=== PATIENT | female | born 1955 | race Hispanic/Latino ===

== ENCOUNTER 2017-11-18 23:13 | Emergency (ER) | payer MEDICARE ==
[~2017-11-18 23:13] MED LIST: ATOR40TA71 PO; INSU3INS3 SQ; PRED20TA3 PO; QUET200T PO; VERA200C2 PO; VERA40TA5 PO; [UNRECOGNIZED DRUG - OTHER] MC; [UNRECOGNIZED DRUG - OTHER] SD
[2017-11-19] MEDS ORDERED: TETRACAINE HCL 0.5% 4 ML OPHTH SOLN ONE (01:02)
[2017-11-19] MEDS ORDERED: FLUORESCEIN SODIUM 0.6 MG STRIP ONE (01:02)
== END 2017-11-19 01:50 | disposition home or self-care (01) ==
LOC: EDH 23:13
DX: H10.9 Unspecified conjunctivitis (principal); Z86.73 Personal history of transient ischemic attack (TIA), and cerebral infarction without residual deficits; Z91.041 Radiographic dye allergy status

== ENCOUNTER 2018-04-28 04:34 | Emergency (ER) | payer MEDICARE ==
[2018-04-28 05:21] LABS: BASOPHILS % (AUTO) 0.3 % (0.0-5.0); EOSINOPHILS % (AUTO) 0.2 % (0.0-8.0); HEMATOCRIT 40.8 % (36-48); LYMPHOCYTES % (AUTO) 5.9 % (21.0-51.0); MEAN CORPUSCULAR HEMOGLOBIN 30.5 pg (27.0-33.0); MEAN CORPUSCULAR HGB CONC 34.4 g/dL (32.0-36.0); MEAN CORPUSCULAR VOLUME 88.9 fL (79-99); MONOCYTES % (AUTO) 3.9 % (3.0-13.0); NEUTROPHILS % (AUTO) 89.7 % (40.0-77.0); NUCLEATED RED BLOOD CELLS 0.1 % (0.0-0.19); PLATELET COUNT (AUTO) 338 K/uL (130-400); RED BLOOD CELL COUNT(AUTO) 4.59 MIL/uL (4.00-5.50); RED CELL DISTRIBUTION WIDTH 14.6 % (11.0-15.5); WHITE BLOOD COUNT (AUTO) 14.7 K/uL (4.8-10.8)
[2018-04-28 05:27] LABS: CREATININE 0.9 mg/dL (0.5-1.5); POTASSIUM 4.4 mmol/L (3.5-5.1)
[2018-04-28] MEDS ORDERED: ONDANSETRON HCL 4 MG/2 ML VIAL ONE (05:30)
[2018-04-28] MEDS ORDERED: MORPHINE SULFATE 2 MG/ML 1ML SYG ONE (05:31)
[2018-04-28 05:32] LABS: ALBUMIN 3.8 g/dL (3.5-5.0); BILIRUBIN,TOTAL 0.5 mg/dL (0.2-1.0); TOTAL PROTEIN, SERUM 9.1 g/dL (6.0-8.3)
[2018-04-28 05:54] LABS: APPEARANCE,URINE Turbid (CLEAR); BILIRUBIN,URINE Negative (NEGATIVE); COLOR,URINE Dark Yellow (YELLOW); GLUCOSE, URINE (UA) Negative (NEGATIVE); KETONES,URINE Trace mg/dL (NEGATIVE); LEUKOCYTE ESTERASE ,URINE Small (NEGATIVE); NITRATE,URINE Negative (NEGATIVE); OCCULT BLOOD,URINE Negative (NEGATIVE); PROTEIN,URINE POS 1+ (NEGATIVE)
[2018-04-28 06:02] LABS: BACTERIA,URINE Many /HPF (None Seen); RBC,URINE 0-1 /HPF (0-1)
[2018-04-28 06:03] LABS: FINE GRANULAR CASTS,URINE 0-2 /LPF (None Seen)
[2018-04-28] MEDS ORDERED: CEFTRIAXONE SODIUM 1 GM ONE (06:26)
[2018-04-28] MEDS ORDERED: SODIUM CHLORIDE 0.9% 50 ML IV ONE (06:26)
== END 2018-04-28 07:27 | disposition home or self-care (01) ==
LOC: EDH 04:34
DX: N30.00 Acute cystitis without hematuria (principal); K52.9 Noninfective gastroenteritis and colitis, unspecified; I25.10 Atherosclerotic heart disease of native coronary artery without angina pectoris; Z91.041 Radiographic dye allergy status
CPT/HCPCS: 36415; 76705; 80053; 81001; 82150; 83690; 85025; 87088; 93005; 96374; 96375; 99285; J0696; J2405

== ENCOUNTER 2018-08-09 13:06 | Emergency (ER) | payer MEDICARE ==
[2018-08-09] MEDS ORDERED: ONDANSETRON HCL 4 MG/2 ML VIAL ONE (13:32)
[2018-08-09] MEDS ORDERED: SODIUM CHLORIDE 0.9% 1000ML 1,000 ML IV ONE (13:32)
[2018-08-09] MEDS ORDERED: KETOROLAC TROMETHAMINE 30MG/ML ONE (13:33)
[2018-08-09 14:10] LABS: APPEARANCE,URINE Clear (CLEAR); BILIRUBIN,URINE Negative (NEGATIVE); COLOR,URINE Yellow (YELLOW); GLUCOSE, URINE (UA) Negative (NEGATIVE); KETONES,URINE Negative (NEGATIVE); LEUKOCYTE ESTERASE ,URINE Moderate (NEGATIVE); NITRATE,URINE Negative (NEGATIVE); OCCULT BLOOD,URINE Negative (NEGATIVE); PROTEIN,URINE Negative (NEGATIVE)
[2018-08-09 14:11] LABS: BASOPHILS % (AUTO) 0.7 % (0.0-5.0); EOSINOPHILS % (AUTO) 2.6 % (0.0-8.0); HEMATOCRIT 41.4 % (36-48); LYMPHOCYTES % (AUTO) 30.7 % (21.0-51.0); MEAN CORPUSCULAR HEMOGLOBIN 29.5 pg (27.0-33.0); MEAN CORPUSCULAR VOLUME 89.2 fL (79-99); MONOCYTES % (AUTO) 7.9 % (3.0-13.0); NEUTROPHILS % (AUTO) 58.1 % (40.0-77.0); NUCLEATED RED BLOOD CELLS 0.1 % (0.0-0.19); PLATELET COUNT (AUTO) 320 K/uL (130-400); RED BLOOD CELL COUNT(AUTO) 4.65 MIL/uL (4.00-5.50); RED CELL DISTRIBUTION WIDTH 13.8 % (11.0-15.5); WHITE BLOOD COUNT (AUTO) 9.9 K/uL (4.8-10.8)
[2018-08-09 14:22] LABS: BACTERIA,URINE Rare /HPF (None Seen); RBC,URINE 0-1 /HPF (0-1); SQUAMOUS EPITHELIAL CELL,UR Rare /HPF (0-2)
[2018-08-09 15:00] LABS: CREATININE 0.8 mg/dL (0.5-1.5); POTASSIUM 3.9 mmol/L (3.5-5.1)
[2018-08-09 15:03] LABS: ALBUMIN 3.6 g/dL (3.5-5.0); BILIRUBIN,DIRECT 0.1 mg/dL (0.0-0.3); BILIRUBIN,TOTAL 0.2 mg/dL (0.2-1.0); TOTAL PROTEIN, SERUM 8.2 g/dL (6.0-8.3)
[2018-08-09] MEDS ORDERED: DICYCLOMINE HCL 20 MG TAB ONE (15:19)
[2018-08-09] MEDS ORDERED: DIPHENHYDRAMINE HCL 25 MG CAPSULE ONE (15:51)
== END 2018-08-09 17:04 | disposition home or self-care (01) ==
LOC: EDH 13:06
DX: M54.6 Pain in thoracic spine (principal); R11.0 Nausea; Z86.73 Personal history of transient ischemic attack (TIA), and cerebral infarction without residual deficits; Z91.041 Radiographic dye allergy status
CPT/HCPCS: 36415; 74176; 80048; 80076; 81001; 83690; 84484; 85025; 93005; 96374; 96375; 99285; J1885; J2405; J7030; Q0163

== ENCOUNTER 2018-11-01 16:36 | Emergency (ER) | payer MEDICARE ==
[2018-11-01 17:29] LABS: APPEARANCE,URINE Clear (CLEAR); BILIRUBIN,URINE Negative (NEGATIVE); COLOR,URINE Yellow (YELLOW); GLUCOSE, URINE (UA) Negative (NEGATIVE); KETONES,URINE Negative (NEGATIVE); LEUKOCYTE ESTERASE ,URINE Moderate (NEGATIVE); NITRATE,URINE Negative (NEGATIVE); OCCULT BLOOD,URINE Negative (NEGATIVE); PH,URINE 6.5 (5.0-8.0); PROTEIN,URINE Negative (NEGATIVE)
[2018-11-01 17:36] LABS: BACTERIA,URINE Few /HPF (None Seen); RBC,URINE None Seen /HPF (0-1)
[2018-11-01] MEDS ORDERED: MORPHINE SULFATE 4 MG/1ML SYG ONE (17:39)
[2018-11-01] MEDS ORDERED: ONDANSETRON HCL 4 MG/2 ML VIAL ONE (17:39)
[2018-11-01 17:40] LABS: BASOPHILS % (AUTO) 1.4 % (0.0-5.0); EOSINOPHILS % (AUTO) 2.5 % (0.0-8.0); HEMATOCRIT 44.9 % (36-48); LYMPHOCYTES % (AUTO) 30.2 % (21.0-51.0); MEAN CORPUSCULAR HEMOGLOBIN 29.5 pg (27.0-33.0); MEAN CORPUSCULAR HGB CONC 32.9 g/dL (32.0-36.0); MEAN CORPUSCULAR VOLUME 89.5 fL (79-99); MONOCYTES % (AUTO) 8.1 % (3.0-13.0); NEUTROPHILS % (AUTO) 57.8 % (40.0-77.0); PLATELET COUNT (AUTO) 349 K/uL (130-400); RED BLOOD CELL COUNT(AUTO) 5.02 MIL/uL (4.00-5.50); RED CELL DISTRIBUTION WIDTH 14.3 % (11.0-15.5); WHITE BLOOD COUNT (AUTO) 10.4 K/uL (4.8-10.8)
[2018-11-01 17:41] LABS: CREATININE 0.8 mg/dL (0.5-1.5); POTASSIUM 3.7 mmol/L (3.5-5.1)
[2018-11-01 17:46] LABS: ALBUMIN 3.9 g/dL (3.5-5.0); BILIRUBIN,TOTAL 0.3 mg/dL (0.2-1.0); TOTAL PROTEIN, SERUM 9.1 g/dL (6.0-8.3)
[2018-11-01 17:48] LABS: INR 0.92 (0.85-1.15); PARTIAL THROMBOPLASTIN TIME 25.5 SEC (26.3-35.5); PROTHROMBIN TIME 9.7 SEC (9.6-11.6)
== END 2018-11-01 19:16 | disposition home or self-care (01) ==
LOC: EDH 16:36
DX: M54.12 Radiculopathy, cervical region (principal); R51 Headache; R20.2 Paresthesia of skin; R79.1 Abnormal coagulation profile; F20.9 Schizophrenia, unspecified; Z91.041 Radiographic dye allergy status; Z86.73 Personal history of transient ischemic attack (TIA), and cerebral infarction without residual deficits; Z90.710 Acquired absence of both cervix and uterus
CPT/HCPCS: 36415; 70450; 72125; 80053; 81001; 84484; 85025; 85610; 85730; 93005; 96374; 96375; 99284; J2270; J2405

== ENCOUNTER 2019-05-28 18:51 | Emergency (ER) | payer MEDICARE | END 2019-05-28 19:17 | disposition home or self-care (01) | LOC: EDH 18:51 | DX: T16.1XXA Foreign body in right ear, initial encounter (principal); F20.9 Schizophrenia, unspecified; Z98.890 Other specified postprocedural states; Z91.041 Radiographic dye allergy status; X58.XXXA Exposure to other specified factors, initial encounter; Y93.89 Activity, other specified; Y92.89 Other specified places as the place of occurrence of the external cause; Y99.8 Other external cause status | CPT/HCPCS: 69200 ==

== ENCOUNTER 2019-06-11 20:34 | Emergency (ER) | payer MEDICARE ==
[2019-06-11] MEDS ORDERED: NEOMYCIN/POLYMYXIN/HC OTIC SUSP 10ML BOTTLE ONE (21:01)
== END 2019-06-11 21:09 | disposition home or self-care (01) ==
LOC: EDH 20:34
DX: H60.8X1 Other otitis externa, right ear (principal); M35.2 Behcet's disease; F20.9 Schizophrenia, unspecified; Z91.041 Radiographic dye allergy status; Z86.73 Personal history of transient ischemic attack (TIA), and cerebral infarction without residual deficits

== ENCOUNTER 2020-01-30 16:59 | Emergency (ER) | payer MEDICARE ==
[~2020-01-30 16:59] MED LIST changes: -VERA200C2 PO; +[UNRECOGNIZED DRUG - CODE] PO
[2020-01-30 17:21] LABS: BASOPHILS % (AUTO) 0.9 % (0.0-5.0); EOSINOPHILS % (AUTO) 3.1 % (0.0-8.0); HEMATOCRIT 44.5 % (36-48); MEAN CORPUSCULAR HEMOGLOBIN 29.5 pg (27.0-33.0); MEAN CORPUSCULAR VOLUME 89.4 fL (79-99); MONOCYTES % (AUTO) 10.6 % (3.0-13.0); NEUTROPHILS % (AUTO) 55.8 % (40.0-77.0); PLATELET COUNT (AUTO) 333 K/uL (130-400); RED BLOOD CELL COUNT(AUTO) 4.98 MIL/uL (4.00-5.50); RED CELL DISTRIBUTION WIDTH 13.3 % (11.0-15.5); WHITE BLOOD COUNT (AUTO) 11.3 K/uL (4.8-10.8)
[2020-01-30 17:33] LABS: CREATININE 0.8 mg/dL (0.5-1.5); POTASSIUM 3.7 mmol/L (3.5-5.1)
[2020-01-30 17:38] LABS: ALBUMIN 3.5 g/dL (3.5-5.0); BILIRUBIN,TOTAL 0.2 mg/dL (0.2-1.0); TOTAL PROTEIN, SERUM 8.2 g/dL (6.0-8.3)
[2020-01-30] MEDS ORDERED: ONDANSETRON ODT 4 MG TAB ONE (17:57)
[2020-01-30] MEDS ORDERED: CYCLOBENZAPRINE HCL 10 MG TABLET ONE (17:57)
[2020-01-30] MEDS ORDERED: HYDROCODONE/ACETAMINOPHEN 5/325 MG TAB ONE (17:58)
== END 2020-01-30 18:29 | disposition home or self-care (01) ==
LOC: EDH 16:59
DX: M25.511 Pain in right shoulder (principal); M79.10 Myalgia, unspecified site
CPT/HCPCS: 36415; 80053; 82550; 84484; 85025; 93005

== ENCOUNTER 2020-06-15 12:17 | Emergency (ER) | payer MEDICARE ==
[2020-06-15] MEDS ORDERED: DIAZEPAM 5 MG/ML 2 ML SYG ONE (12:49)
[2020-06-15] MEDS ORDERED: KETOROLAC TROMETHAMINE 15MG/ML ONE (12:50)
[2020-06-15] MEDS ORDERED: MORPHINE SULFATE 4 MG/1ML SYG ONE ×2 (13:45→14:14)
== END 2020-06-15 15:59 | disposition home or self-care (01) ==
LOC: EDH 12:17
DX: M54.41 Lumbago with sciatica, right side (principal); F20.9 Schizophrenia, unspecified; Z98.890 Other specified postprocedural states; Z91.041 Radiographic dye allergy status; W18.39XA Other fall on same level, initial encounter; Y93.01 Activity, walking, marching and hiking; Y92.89 Other specified places as the place of occurrence of the external cause; Y99.8 Other external cause status
CPT/HCPCS: 72100; 96374; 96375 ×2; 99284; J1885; J2270 ×2; J3360; 96376

== ENCOUNTER 2020-06-17 10:24 | Emergency (ER) | payer MEDICARE ==
[2020-06-17] MEDS ORDERED: KETOROLAC TROMETHAMINE 30MG/ML ONE (11:11)
[2020-06-17] MEDS ORDERED: DIAZEPAM 5 MG/ML 2 ML SYG ONE (11:12)
== END 2020-06-17 13:16 | disposition home or self-care (01) ==
LOC: EDH 10:24
DX: M54.5 Low back pain (principal); F20.9 Schizophrenia, unspecified; Z98.890 Other specified postprocedural states; Z91.041 Radiographic dye allergy status
CPT/HCPCS: 96372 ×2; 99284; J1885; J3360

== ENCOUNTER 2021-01-20 21:09 | Emergency (ER) | payer MEDICARE ==
[2021-01-20] MEDS ORDERED: HYDROCODONE/ACETAMINOPHEN 5/325 MG TAB ONE (21:55)
== END 2021-01-21 00:23 | disposition home or self-care (01) ==
LOC: EDH 21:09
DX: M25.561 Pain in right knee (principal); M54.2 Cervicalgia; J44.9 Chronic obstructive pulmonary disease, unspecified; F20.9 Schizophrenia, unspecified; Z86.73 Personal history of transient ischemic attack (TIA), and cerebral infarction without residual deficits; Z91.041 Radiographic dye allergy status; Z98.890 Other specified postprocedural states
CPT/HCPCS: 70450; 72125; 73562; 93971

== ENCOUNTER 2021-07-25 12:05 | Emergency (ER) | payer MEDICARE ==
[~2021-07-25] VITALS: Ht 154.9 cm; Wt 84.4 kg
[2021-07-25 12:32] VITALS: BP 109/45
[2021-07-25] MEDS ORDERED: HYDROCODONE/ACETAMINOPHEN 5/325 MG TAB PO STA (12:40)
[2021-07-25 13:15] LABS: ALBUMIN 3.5 g/dL (3.5-5.0); BILIRUBIN,TOTAL 0.2 mg/dL (0.2-1.0); CREATININE 0.8 mg/dL (0.5-1.5); POTASSIUM 4.1 mmol/L (3.5-5.1); TOTAL PROTEIN, SERUM 8.7 g/dL (6.0-8.3)
[2021-07-25] MEDS ORDERED: KETOROLAC 30MG VIAL (30MG/ML) IM STA (13:54)
[2021-07-25] MEDS ORDERED: IBUP-2088 PO (14:02)
== END 2021-07-25 14:10 | disposition home or self-care (01) ==
LOC: EDH 12:05
DX: M35.2 Behcet's disease (principal); M79.642 Pain in left hand; F20.9 Schizophrenia, unspecified; I10 Essential (primary) hypertension; J44.9 Chronic obstructive pulmonary disease, unspecified; Z79.1 Long term (current) use of non-steroidal anti-inflammatories (NSAID); Z79.52 Long term (current) use of systemic steroids; Z79.899 Other long term (current) drug therapy; Z88.8 Allergy status to other drugs, medicaments and biological substances
CPT/HCPCS: 36415; 73130; 80053; 84550; 96372; 99284; J1885

== ENCOUNTER 2022-03-14 22:37 | Emergency (ER) | payer MEDICARE ==
[~2022-03-14] VITALS: Ht 152.4 cm; Wt 83.9 kg
[~2022-03-14 22:37] MED LIST changes: +IBUP-2088 PO
[2022-03-14 23:00] LABS: BASOPHILS % (AUTO) 0.8 % (0.0-5.0); HEMATOCRIT 44.7 % (36-48); LYMPHOCYTES % (AUTO) 24.5 % (21.0-51.0); MEAN CORPUSCULAR HEMOGLOBIN 29.7 pg (27.0-33.0); MEAN CORPUSCULAR HGB CONC 32.7 g/dL (32.0-36.0); MEAN CORPUSCULAR VOLUME 90.9 fL (79-99); MONOCYTES % (AUTO) 7.7 % (3.0-13.0); NEUTROPHILS % (AUTO) 64.4 % (40.0-77.0); PLATELET COUNT (AUTO) 360 K/uL (130-400); RED BLOOD CELL COUNT(AUTO) 4.92 MIL/uL (4.00-5.50); RED CELL DISTRIBUTION WIDTH 13.4 % (11.0-15.5); WHITE BLOOD COUNT (AUTO) 12.1 K/uL (4.8-10.8)
[2022-03-14] MEDS ORDERED: IPRATROPIUM/ALBUTEROL SULFATE 3 ML SOLUTION IH ONE ×2 (23:00→23:30)
[2022-03-14 23:17] LABS: ALBUMIN 3.5 g/dL (3.5-5.0); BILIRUBIN,TOTAL 0.4 mg/dL (0.2-1.0); CREATININE 0.9 mg/dL (0.5-1.5); POTASSIUM 3.9 mmol/L (3.5-5.1)
[2022-03-14] MEDS ORDERED: ALBUTEROL 0.083% 2.5 MG/3 ML INH IH ONE (23:30)
[2022-03-15] MEDS ORDERED: SOLU-MEDROL 40MG VIAL IVP ONE
[2022-03-15] MEDS ORDERED: ALBUHFA IH (00:25)
[2022-03-15] MEDS ORDERED: PRED20TA3 PO (00:25)
[2022-03-15 00:29] VITALS: BP 156/82
== END 2022-03-15 00:47 | disposition home or self-care (01) ==
LOC: EDH 22:37
DX: J45.909 Unspecified asthma, uncomplicated (principal); G89.29 Other chronic pain; Z88.8 Allergy status to other drugs, medicaments and biological substances; Z79.899 Other long term (current) drug therapy
CPT/HCPCS: 36415; 71045; 80053; 84484; 85025; 93005; 94640 ×3; 96374; 99285; J2920

== ENCOUNTER 2022-08-04 12:29 | Emergency (ER) | payer MEDICARE ==
[~2022-08-04] VITALS: Ht 154.9 cm; Wt 83.0 kg
[~2022-08-04 12:29] MED LIST changes: +ALBUHFA IH
[2022-08-04 14:17] LABS: BASOPHILS % (AUTO) 0.7 % (0.0-5.0); EOSINOPHILS % (AUTO) 3.6 % (0.0-8.0); HEMATOCRIT 45.6 % (36-48); MEAN CORPUSCULAR HEMOGLOBIN 30.2 pg (27.0-33.0); MEAN CORPUSCULAR HGB CONC 33.3 g/dL (32.0-36.0); MEAN CORPUSCULAR VOLUME 90.5 fL (79-99); MONOCYTES % (AUTO) 8.1 % (3.0-13.0); NEUTROPHILS % (AUTO) 62.1 % (40.0-77.0); PLATELET COUNT (AUTO) 371 K/uL (130-400); RED BLOOD CELL COUNT(AUTO) 5.04 MIL/uL (4.00-5.50); RED CELL DISTRIBUTION WIDTH 13.3 % (11.0-15.5); WHITE BLOOD COUNT (AUTO) 10.9 K/uL (4.8-10.8)
[2022-08-04 14:20] LABS: APPEARANCE,URINE CLEAR (CLEAR); BILIRUBIN,URINE NEGATIVE (NEGATIVE); COLOR,URINE LIGHT-YELLOW (YELLOW); GLUCOSE, URINE (UA) NEGATIVE (NEGATIVE); KETONES,URINE NEGATIVE (NEGATIVE); LEUKOCYTE ESTERASE ,URINE 25 Leu/uL (NEGATIVE); NITRATE,URINE NEGATIVE (NEGATIVE); OCCULT BLOOD,URINE NEGATIVE (NEGATIVE); PH,URINE 5.5 (5.0-8.0); PROTEIN,URINE NEGATIVE (NEGATIVE); UROBILINOGEN,URINE 0.2 mg/dL (0.2-1.0)
[2022-08-04 14:49] LABS: CREATININE 0.9 mg/dL (0.5-1.5); POTASSIUM 4.5 mmol/L (3.5-5.1)
[2022-08-04 14:54] LABS: ALBUMIN 3.8 g/dL (3.5-5.0); TOTAL PROTEIN, SERUM 9.3 g/dL (6.0-8.3)
[2022-08-04 15:23] LABS: BACTERIA,URINE RARE /HPF (None Seen); RBC,URINE 0-1 /HPF (0-1); SQUAMOUS EPITHELIAL CELL,UR FEW /HPF (0-2)
[2022-08-04 15:43] VITALS: BP 145/85
== END 2022-08-04 15:49 | disposition home or self-care (01) ==
LOC: EDH 12:29
DX: R20.2 Paresthesia of skin (principal); J45.909 Unspecified asthma, uncomplicated; G89.29 Other chronic pain; Z90.89 Acquired absence of other organs; Z79.899 Other long term (current) drug therapy; Z88.8 Allergy status to other drugs, medicaments and biological substances
CPT/HCPCS: 36415; 70450; 71045; 80053; 81001; 85025

== ENCOUNTER 2022-12-14 15:48 | Emergency (ER) | payer MEDICARE ==
[~2022-12-14] VITALS: Ht 154.9 cm; Wt 85.3 kg
[2022-12-14 18:41] VITALS: BP 141/68
== END 2022-12-14 19:05 | disposition home or self-care (01) ==
LOC: EDH 15:48
DX: S86.912A Strain of unspecified muscle(s) and tendon(s) at lower leg level, left leg, initial encounter (principal); J44.9 Chronic obstructive pulmonary disease, unspecified; Z86.73 Personal history of transient ischemic attack (TIA), and cerebral infarction without residual deficits; Z90.49 Acquired absence of other specified parts of digestive tract; Z79.1 Long term (current) use of non-steroidal anti-inflammatories (NSAID); Z79.899 Other long term (current) drug therapy; Z88.8 Allergy status to other drugs, medicaments and biological substances; Z91.013 Allergy to seafood; W01.0XXA Fall on same level from slipping, tripping and stumbling without subsequent striking against object, initial encounter; Y93.89 Activity, other specified; Y92.89 Other specified places as the place of occurrence of the external cause; Y99.8 Other external cause status
CPT/HCPCS: 70450; 72125; 73562

== ENCOUNTER 2024-01-03 07:39 | Inpatient (IN) | payer MEDICARE ==
[~2024-01-03] VITALS: Ht 154.9 cm; Wt 77.1 kg
[2024-01-03] MEDS: SOLU-MEDROL 125MG VIAL IVP ONE (08:24)
[2024-01-03] MEDS: HYDROCODONE/ACETAMINOPHEN 5/325 MG TAB PO ONE (12:05)
[2024-01-03] MEDS: CYCLOBENZAPRINE HCL 10 MG TABLET PO ONE (12:05)
[2024-01-03 12:17] LABS: BASOPHILS # (AUTO) 0.06 K/uL (0.00-0.20); BASOPHILS % (AUTO) 0.5 % (0.0-5.0); EOSINOPHILS # (AUTO) 0.02 K/uL (0.00-0.70); EOSINOPHILS % (AUTO) 0.2 % (0.0-8.0); HEMATOCRIT 44.5 % (36-48); IMMATURE GRANULOCYTE ABSOLUTE 0.14 K/uL (0-1); LYMPHOCYTES # (AUTO) 1.1 K/uL (1.0-4.8); LYMPHOCYTES % (AUTO) 8.2 % (21.0-51.0); MEAN CORPUSCULAR HEMOGLOBIN 30.5 pg (27.0-33.0); MEAN CORPUSCULAR HGB CONC 33.7 g/dL (32.0-36.0); MEAN CORPUSCULAR VOLUME 90.4 fL (79-99); MONOCYTES # (AUTO) 0.1 K/uL (0.1-1.0); MONOCYTES % (AUTO) 0.8 % (3.0-13.0); NEUTROPHILS # (AUTO) 11.5 K/uL (1.8-7.7); NEUTROPHILS % (AUTO) 89.2 % (40.0-77.0); PLATELET COUNT (AUTO) 403 K/uL (130-400); RED BLOOD CELL COUNT(AUTO) 4.92 MIL/uL (4.00-5.50); RED CELL DISTRIBUTION WIDTH 13.5 % (11.0-15.5); WHITE BLOOD COUNT (AUTO) 12.9 K/uL (4.8-10.8)
[2024-01-03 12:25] LABS: CREATININE 0.8 mg/dL (0.5-1.5); POTASSIUM 4.4 mmol/L (3.5-5.1)
[2024-01-03 12:30] LABS: ALBUMIN 3.6 g/dL (3.5-5.0); BILIRUBIN,TOTAL 0.3 mg/dL (0.2-1.0); TOTAL PROTEIN, SERUM 9.1 g/dL (6.0-8.3)
[2024-01-03] MEDS ORDERED: CYCL5TAB PO (13:04)
[2024-01-03] MEDS ORDERED: METH4TAB3 PO (13:04)
[2024-01-03] MEDS: HYDROMORPHONE 0.5 MG SYG (0.5MG/0.5ML) IVP PRN (14:12)
[2024-01-03] MEDS: INSULIN HUMULIN R 100 UNIT/ML 3ML SQ SCH (16:28)
[2024-01-03] MEDS: TRAMADOL HCL 50 MG TABLET ONE (17:25)
[2024-01-03] MEDS: TRAMADOL HCL 50 MG TABLET PO PRN (17:25)
[2024-01-03] MEDS ORDERED: QUET300T2 PO (18:46)
[2024-01-03] MEDS ORDERED: GABA600T10 PO (18:46)
[2024-01-03 19:11] VITALS: PULSE 76; RESP 16; O2SAT 98
[2024-01-03 19:13] VITALS: PULSE 76; RESP 14
[2024-01-03] MEDS: ALBUTEROL 0.083% 2.5 MG/3 ML INH IH PRN (19:13)
[2024-01-03] MEDS: SOLU-MEDROL 40MG VIAL IVP SCH (21:04)
[2024-01-03 21:35] VITALS: BP 134/64; PULSE 71; RESP 18
[2024-01-03 22:00] VITALS: O2SAT 94
[2024-01-03] MEDS: ONDANSETRON 4MG INJ IVP PRN (22:24)
[2024-01-04] VITALS (8 sets, daily range): BP systolic 126–147; BP diastolic 70–82; PULSE 70–79; RESP 16–20; O2SAT 94–95
[2024-01-04 05:02] LABS: BASOPHILS # (AUTO) 0.03 K/uL (0.00-0.20); BASOPHILS % (AUTO) 0.2 % (0.0-5.0); HEMATOCRIT 44.4 % (36-48); IMMATURE GRANULOCYTE ABSOLUTE 0.18 K/uL (0-1); LYMPHOCYTES # (AUTO) 1.3 K/uL (1.0-4.8); LYMPHOCYTES % (AUTO) 9.2 % (21.0-51.0); MEAN CORPUSCULAR HEMOGLOBIN 30.2 pg (27.0-33.0); MEAN CORPUSCULAR HGB CONC 32.7 g/dL (32.0-36.0); MEAN CORPUSCULAR VOLUME 92.5 fL (79-99); MONOCYTES # (AUTO) 0.4 K/uL (0.1-1.0); MONOCYTES % (AUTO) 2.9 % (3.0-13.0); NEUTROPHILS # (AUTO) 11.9 K/uL (1.8-7.7); NEUTROPHILS % (AUTO) 86.4 % (40.0-77.0); PLATELET COUNT (AUTO) 437 K/uL (130-400); RED CELL DISTRIBUTION WIDTH 13.5 % (11.0-15.5); WHITE BLOOD COUNT (AUTO) 13.7 K/uL (4.8-10.8)
[2024-01-04 05:16] LABS: ALBUMIN 3.2 g/dL (3.5-5.0); BILIRUBIN,TOTAL 0.3 mg/dL (0.2-1.0); MAGNESIUM 2.1 mg/dL (1.80-2.40); POTASSIUM 3.8 mmol/L (3.5-5.1); TOTAL PROTEIN, SERUM 8.5 g/dL (6.0-8.3)
[2024-01-04] MEDS: ENOXAPARIN SODIUM 30 MG/0.3 ML SQ SCH (08:31)
[2024-01-04] MEDS: PROMETHAZINE HCL 25 MG/ML 1ML AMPULE IM PRN (08:33)
[2024-01-05] VITALS (8 sets, daily range): BP systolic 115–135; BP diastolic 62–106; PULSE 70–94; RESP 17–19; O2SAT 93
[2024-01-05] MEDS: ACETAMINOPHEN 325 MG TAB PO PRN (00:24)
[2024-01-05 05:18] LABS: HEMATOCRIT 43.2 % (36-48); MEAN CORPUSCULAR HEMOGLOBIN 30.2 pg (27.0-33.0); MEAN CORPUSCULAR HGB CONC 32.9 g/dL (32.0-36.0); MEAN CORPUSCULAR VOLUME 91.9 fL (79-99); RED BLOOD CELL COUNT(AUTO) 4.7 MIL/uL (4.00-5.50); RED CELL DISTRIBUTION WIDTH 13.4 % (11.0-15.5); WHITE BLOOD COUNT (AUTO) 17.6 K/uL (4.8-10.8)
[2024-01-05 05:39] LABS: ALBUMIN 3.2 g/dL (3.5-5.0); BILIRUBIN,TOTAL 0.3 mg/dL (0.2-1.0); MAGNESIUM 2.5 mg/dL (1.80-2.40); POTASSIUM 4.1 mmol/L (3.5-5.1); TOTAL PROTEIN, SERUM 8.2 g/dL (6.0-8.3)
[2024-01-05] MEDS ORDERED: HYDRALAZINE 20MG/ML VIAL IV PRN (21:00)
[2024-01-05] MEDS ORDERED: NON-FORMULARY MEDICATION 1 EACH (Gabapentin 600 MG) PO SCH (21:00)
[2024-01-05] MEDS ORDERED: QUETIAPINE FUMARATE 300 MG PO SCH (21:00)
[2024-01-05] MEDS: GABAPENTIN 300 MG CAPSULE PO SCH (21:39)
[2024-01-05] MEDS: QUETIAPINE FUMARATE 100 MG TAB PO SCH (21:39)
[2024-01-06] VITALS (20 sets, daily range): BP systolic 105–155; BP diastolic 45–83; PULSE 64–106; RESP 13–20; O2SAT 93
[2024-01-06 04:54] LABS: HEMATOCRIT 45.4 % (36-48); MEAN CORPUSCULAR HEMOGLOBIN 30.3 pg (27.0-33.0); MEAN CORPUSCULAR HGB CONC 32.8 g/dL (32.0-36.0); MEAN CORPUSCULAR VOLUME 92.3 fL (79-99); RED BLOOD CELL COUNT(AUTO) 4.92 MIL/uL (4.00-5.50); RED CELL DISTRIBUTION WIDTH 13.3 % (11.0-15.5); WHITE BLOOD COUNT (AUTO) 11.7 K/uL (4.8-10.8)
[2024-01-06 05:07] LABS: CREATININE 0.9 mg/dL (0.5-1.5); MAGNESIUM 2.5 mg/dL (1.80-2.40); POTASSIUM 4.3 mmol/L (3.5-5.1)
[2024-01-06] MEDS ORDERED: LIDOCAINE HCL 1% 20 ML VIAL ONE (12:15)
[2024-01-06] MEDS ORDERED: PROPOFOL 10 MG/ML 20ML VIAL IV ONE (12:15)
[2024-01-06] MEDS ORDERED: PHENYLEPHRINE HCL 10 MG/ML 1ML VIAL IV ONE (12:32)
[2024-01-08 08:16] LABS: C DIFFICILE TOXIN A/B Not Detected (Not Detected); ENTEROAGGREGATIVE ECOLI Not Detected (Not Detected); GIARDIA LAMBLIA Not Detected (Not Detected); PLESIOMONAS SHIGELOIDES Not Detected (Not Detected); SAPOVIRUS Not Detected (Not Detected); SHIGELLA/ENTEROINVASIVE E COLI Not Detected (Not Detected); VIBRIO Not Detected (Not Detected); VIBRIO CHOLERAE Not Detected (Not Detected)
== END 2024-01-06 18:45 | disposition home or self-care (01) | DRG 547 ==
LOC: EDH 07:39 → EDHIP 13:23 → 4CH 21:41
PROVIDERS: ADMIT Internal Medicine Infectious Disease; ATTEND Internal Medicine Infectious Disease
PROC: 0DB58ZX Excision of Esophagus, Via Natural or Artificial Opening Endoscopic, Diagnostic (ICD-10-PCS; principal; 2024-01-06)
PROC: 0DB68ZX Excision of Stomach, Via Natural or Artificial Opening Endoscopic, Diagnostic (ICD-10-PCS; 2024-01-06)
DX: M35.2 Behcet's disease (principal); M54.2 Cervicalgia; M54.9 Dorsalgia, unspecified; I10 Essential (primary) hypertension; E78.5 Hyperlipidemia, unspecified; H54.62 Unqualified visual loss, left eye, normal vision right eye; E66.9 Obesity, unspecified; G44.209 Tension-type headache, unspecified, not intractable; G89.29 Other chronic pain; K29.70 Gastritis, unspecified, without bleeding; K44.9 Diaphragmatic hernia without obstruction or gangrene; Z90.49 Acquired absence of other specified parts of digestive tract; Z90.710 Acquired absence of both cervix and uterus; Z86.73 Personal history of transient ischemic attack (TIA), and cerebral infarction without residual deficits; Z91.041 Radiographic dye allergy status; Z91.013 Allergy to seafood; Z68.32 Body mass index [BMI] 32.0-32.9, adult
CPT/HCPCS: 36415; 43239; 80048; 80053; 82948; 83036; 83735; 84484; 85025; 85027; 86850; 86900; 86901; 87507; 94640; 94664; G0378; J1170; J1650; J1815; J2371; J2405; J2550; J2704; J2920; J2930; J7030; A4215; A4222; A4223; A4620; A7002; J3490

== ENCOUNTER 2024-04-09 22:43 | Observation (INO) | payer MEDICARE ==
[~2024-04-09] VITALS: Ht 165.1 cm; Wt 79.0 kg
[~2024-04-09 22:43] MED LIST changes: -ATOR40TA71 PO; +CYCL5TAB PO; +GABA600T10 PO; -IBUP-2088 PO; -INSU3INS3 SQ; +METH4TAB3 PO; -QUET200T PO; +QUET300T2 PO; -VERA40TA5 PO; -[UNRECOGNIZED DRUG - CODE] PO; -[UNRECOGNIZED DRUG - OTHER] MC; -[UNRECOGNIZED DRUG - OTHER] SD
[2024-04-10] VITALS (7 sets, daily range): BP systolic 130–146; BP diastolic 69–85; PULSE 72–81; RESP 18–20; O2SAT 91–97
[2024-04-10] MEDS: MORPHINE 4 MG SYG IVP ONE (00:15)
[2024-04-10] MEDS: 0.9%NACL 1000ML 1,000 ML IV ONE (00:15)
[2024-04-10] MEDS: SOLU-MEDROL 40MG VIAL IVP ONE ×2 (00:30→04:33)
[2024-04-10] MEDS: ASPIRIN 81MG CHEW TAB PO ONE (00:30)
[2024-04-10 00:33] LABS: POTASSIUM 3.7 mmol/L (3.5-5.1)
[2024-04-10 00:34] LABS: ALBUMIN 3.4 g/dL (3.5-5.0); BILIRUBIN,TOTAL 0.2 mg/dL (0.2-1.0); CREATININE 0.9 mg/dL (0.5-1.0)
[2024-04-10 00:46] LABS: BASOPHILS # (AUTO) 0.09 K/uL (0.00-0.20); BASOPHILS % (AUTO) 0.7 % (0.0-5.0); EOSINOPHILS % (AUTO) 2.3 % (0.0-8.0); IMMATURE GRANULOCYTE ABSOLUTE 0.07 K/uL (0-1); LYMPHOCYTES # (AUTO) 3.7 K/uL (1.0-4.8); LYMPHOCYTES % (AUTO) 28.9 % (21.0-51.0); MEAN CORPUSCULAR HEMOGLOBIN 30.2 pg (27.0-33.0); MEAN CORPUSCULAR HGB CONC 33.2 g/dL (32.0-36.0); MEAN CORPUSCULAR VOLUME 90.9 fL (79-99); NEUTROPHILS # (AUTO) 7.6 K/uL (1.8-7.7); NEUTROPHILS % (AUTO) 59.6 % (40.0-77.0); PLATELET COUNT (AUTO) 401 K/uL (130-400); RED BLOOD CELL COUNT(AUTO) 4.51 MIL/uL (4.00-5.50); RED CELL DISTRIBUTION WIDTH 13.6 % (11.0-15.5); WHITE BLOOD COUNT (AUTO) 12.8 K/uL (4.8-10.8)
[2024-04-10] MEDS: OXYCODONE/ACETAMIN 5/325MG TAB PO ONE (04:11)
[2024-04-10] MEDS ORDERED: ACETAMINOPHEN 650 MG SUPPOSITORY RC PRN (07:30)
[2024-04-10] MEDS ORDERED: LACTULOSE 20 GM/30 ML UDCUP PO PRN (07:30)
[2024-04-10] MEDS ORDERED: HYDRALAZINE 20MG/ML VIAL IV PRN (07:30)
[2024-04-10] MEDS: INSULIN HUMULIN R 100 UNIT/ML 3ML SQ SCH (07:30)
[2024-04-10] MEDS ORDERED: TEMAZEPAM 15 MG CAPSULE PO PRN (07:30)
[2024-04-10] MEDS ORDERED: DOCUSATE SODIUM 100 MG CAP PO PRN (07:30)
[2024-04-10] MEDS: ONDANSETRON 4MG INJ IVP PRN (08:34)
[2024-04-10] MEDS: ENOXAPARIN SODIUM 40 MG/0.4 ML SYRINGE SQ SCH (08:34)
[2024-04-10] MEDS ORDERED: ASPIRIN 81MG CHEW TAB PO SCH (09:00)
[2024-04-10] MEDS: CEFTRIAXONE 2GM VIAL IVPB SCH (09:37)
[2024-04-10 09:40] LABS: APPEARANCE,URINE CLEAR (CLEAR); BILIRUBIN,URINE NEGATIVE (NEGATIVE); COLOR,URINE LIGHT-YELLOW (YELLOW); GLUCOSE, URINE (UA) >=1000 mg/dL (NEGATIVE); KETONES,URINE 5 mg/dL (NEGATIVE); LEUKOCYTE ESTERASE ,URINE NEGATIVE Leu/uL (NEGATIVE); NITRATE,URINE NEGATIVE (NEGATIVE); OCCULT BLOOD,URINE NEGATIVE (NEGATIVE); PH,URINE 5.5 (5.0-8.0); PROTEIN,URINE NEGATIVE (NEGATIVE); UROBILINOGEN,URINE 0.2 mg/dL (0.2-1.0)
[2024-04-10] MEDS: 0.9%NACL 50ML 50 ML IV ONE (09:40)
[2024-04-10 09:46] LABS: ADD UA MICROSCOPIC YES
[2024-04-10 09:47] LABS: RBC,URINE 0-1 /HPF (0-1); WBC,URINE 0-1 /HPF (0-1)
[2024-04-10 09:48] LABS: BACTERIA,URINE Rare /HPF (None Seen); SQUAMOUS EPITHELIAL CELL,UR Rare /HPF (0-2)
[2024-04-10 10:17] LABS: AMMONIA < 10 umol/L (11-32); CREATINE KINASE, TOTAL 101 U/L (21-232)
[2024-04-10 10:47] LABS: SARS-CoV-2, RNA, NAAT NEGATIVE SARS CoV-2 (NEGATIVE)
[2024-04-10 10:49] LABS: INFLUENZA TYPE A Negative For Type A (NEGATIVE); INFLUENZA TYPE B Negative For Type B (NEGATIVE)
[2024-04-10] MEDS: PROMETHAZINE HCL 25 MG/ML 1ML AMPULE IM ONE (15:48)
[2024-04-10] MEDS: MORPHINE 2 MG SYG IVP PRN (15:52)
[2024-04-10] MEDS: 0.9%NACL 1000ML 1,000 ML IV SCH (17:30)
[2024-04-10] MEDS: SOLU-MEDROL 40MG VIAL IVP SCH (20:17)
[2024-04-11] VITALS (8 sets, daily range): BP systolic 118–139; BP diastolic 66–75; PULSE 70–83; RESP 17–20; O2SAT 92–97
[2024-04-11] MEDS: ACETAMINOPHEN 325 MG TAB PO PRN (03:39)
[2024-04-11 03:54] LABS: BASOPHILS # (AUTO) 0.03 K/uL (0.00-0.20); BASOPHILS % (AUTO) 0.2 % (0.0-5.0); HEMATOCRIT 42.4 % (36-48); IMMATURE GRANULOCYTE ABSOLUTE 0.12 K/uL (0-1); LYMPHOCYTES # (AUTO) 1.2 K/uL (1.0-4.8); MEAN CORPUSCULAR HEMOGLOBIN 30.7 pg (27.0-33.0); MEAN CORPUSCULAR HGB CONC 32.3 g/dL (32.0-36.0); MEAN CORPUSCULAR VOLUME 95.1 fL (79-99); MONOCYTES # (AUTO) 0.2 K/uL (0.1-1.0); MONOCYTES % (AUTO) 1.6 % (3.0-13.0); NEUTROPHILS # (AUTO) 13.1 K/uL (1.8-7.7); NEUTROPHILS % (AUTO) 89.4 % (40.0-77.0); PLATELET COUNT (AUTO) 382 K/uL (130-400); RED BLOOD CELL COUNT(AUTO) 4.46 MIL/uL (4.00-5.50); RED CELL DISTRIBUTION WIDTH 13.3 % (11.0-15.5); WHITE BLOOD COUNT (AUTO) 14.7 K/uL (4.8-10.8)
[2024-04-11 06:46] LABS: CREATININE 0.7 mg/dL (0.5-1.0); PHOSPHORUS 3.6 mg/dL (2.5-4.9); POTASSIUM 3.9 mmol/L (3.5-5.1)
[2024-04-11] MEDS: PANTOPRAZOLE 40 MG/VIAL IVP SCH (08:44)
[2024-04-11] MEDS: ASPIRIN 81 MG EC TAB PO SCH (08:45)
[2024-04-11] MEDS: ATORVASTATIN 10 MG TABLET PO SCH (20:19)
[2024-04-12] VITALS (12 sets, daily range): BP systolic 129–156; BP diastolic 69–88; PULSE 59–79; RESP 17–20; O2SAT 87–97
[2024-04-12 05:18] LABS: BASOPHILS # (AUTO) 0.04 K/uL (0.00-0.20); BASOPHILS % (AUTO) 0.3 % (0.0-5.0); EOSINOPHILS # (AUTO) 0.02 K/uL (0.00-0.70); EOSINOPHILS % (AUTO) 0.1 % (0.0-8.0); HEMATOCRIT 40.3 % (36-48); IMMATURE GRANULOCYTE ABSOLUTE 0.21 K/uL (0-1); LYMPHOCYTES # (AUTO) 1.7 K/uL (1.0-4.8); LYMPHOCYTES % (AUTO) 11.6 % (21.0-51.0); MEAN CORPUSCULAR HEMOGLOBIN 30.5 pg (27.0-33.0); MEAN CORPUSCULAR VOLUME 92.4 fL (79-99); MONOCYTES # (AUTO) 0.5 K/uL (0.1-1.0); MONOCYTES % (AUTO) 3.2 % (3.0-13.0); NEUTROPHILS # (AUTO) 12.1 K/uL (1.8-7.7); NEUTROPHILS % (AUTO) 83.4 % (40.0-77.0); PLATELET COUNT (AUTO) 396 K/uL (130-400); RED BLOOD CELL COUNT(AUTO) 4.36 MIL/uL (4.00-5.50); RED CELL DISTRIBUTION WIDTH 13.5 % (11.0-15.5); WHITE BLOOD COUNT (AUTO) 14.6 K/uL (4.8-10.8)
[2024-04-12 05:32] LABS: CREATININE 0.9 mg/dL (0.5-1.0)
[2024-04-12] MEDS: IPRATROPIUM/ALBUTEROL SULFATE 3 ML SOLUTION IH PRN (07:39)
[2024-04-12] MEDS ORDERED: ATOR10 PO (08:41)
[2024-04-12] MEDS ORDERED: PRED20TA3 PO (08:41)
[2024-04-12] MEDS ORDERED: AEC81 PO (08:41)
[2024-04-13 04:06] VITALS: BP 129/74; PULSE 66; RESP 18
[2024-04-13 06:20] LABS: BASOPHILS # (AUTO) 0.04 K/uL (0.00-0.20); BASOPHILS % (AUTO) 0.3 % (0.0-5.0); EOSINOPHILS % (AUTO) 0.7 % (0.0-8.0); HEMATOCRIT 44.5 % (36-48); IMMATURE GRANULOCYTE ABSOLUTE 0.22 K/uL (0-1); LYMPHOCYTES # (AUTO) 2.3 K/uL (1.0-4.8); LYMPHOCYTES % (AUTO) 15.6 % (21.0-51.0); MEAN CORPUSCULAR HEMOGLOBIN 30.9 pg (27.0-33.0); MEAN CORPUSCULAR HGB CONC 32.8 g/dL (32.0-36.0); MEAN CORPUSCULAR VOLUME 94.3 fL (79-99); MONOCYTES # (AUTO) 0.9 K/uL (0.1-1.0); MONOCYTES % (AUTO) 6.1 % (3.0-13.0); NEUTROPHILS # (AUTO) 11.3 K/uL (1.8-7.7); NEUTROPHILS % (AUTO) 75.8 % (40.0-77.0); PLATELET COUNT (AUTO) 389 K/uL (130-400); RED BLOOD CELL COUNT(AUTO) 4.72 MIL/uL (4.00-5.50); RED CELL DISTRIBUTION WIDTH 13.2 % (11.0-15.5); WHITE BLOOD COUNT (AUTO) 14.9 K/uL (4.8-10.8)
[2024-04-13 06:31] LABS: CREATININE 0.9 mg/dL (0.5-1.0); POTASSIUM 4.7 mmol/L (3.5-5.1)
[2024-04-13 07:59] VITALS: BP 145/72; PULSE 66; RESP 18
[2024-04-13 08:00] VITALS: O2SAT 95
[2024-04-13 11:45] VITALS: BP 143/82; PULSE 94; RESP 17
== END 2024-04-13 13:45 | disposition home or self-care (01) ==
LOC: EDH 22:43 → EDHIP 04-10 06:29 → 2AH 04-10 11:20 → 4AH 04-11 17:50
PROVIDERS: ADMIT Internal Medicine; ATTEND Internal Medicine
DX: G43.909 Migraine, unspecified, not intractable, without status migrainosus (principal); Z20.822 Contact with and (suspected) exposure to COVID-19; I10 Essential (primary) hypertension; R73.9 Hyperglycemia, unspecified; E78.5 Hyperlipidemia, unspecified; E88.09 Other disorders of plasma-protein metabolism, not elsewhere classified; H54.62 Unqualified visual loss, left eye, normal vision right eye; M54.2 Cervicalgia; R53.1 Weakness; J44.89 Other specified chronic obstructive pulmonary disease; I65.21 Occlusion and stenosis of right carotid artery; M35.2 Behcet's disease; M79.12 Myalgia of auxiliary muscles, head and neck; G89.29 Other chronic pain; M47.892 Other spondylosis, cervical region; E66.9 Obesity, unspecified; R20.0 Anesthesia of skin; R82.4 Acetonuria; Z68.30 Body mass index [BMI] 30.0-30.9, adult; Z79.82 Long term (current) use of aspirin; Z86.73 Personal history of transient ischemic attack (TIA), and cerebral infarction without residual deficits; Z90.710 Acquired absence of both cervix and uterus; Z88.8 Allergy status to other drugs, medicaments and biological substances; Z79.899 Other long term (current) drug therapy
CPT/HCPCS: 82948 ×12; 70450; 93005 ×2; 96372 ×4; 70544; 96376 ×4; 96361; 96365; 96375 ×2; 99285; 82550; 84484; 80061; 80053; 82140; 85025 ×4; 85651; 87804 ×2; 86140; 81001; 36415 ×4; 87635; 72131; 93880; 70551; 70547; 96366; 83735; 84100; 80048 ×3; 97161; 97116 ×3; 97530 ×2; 94760 ×2; 92522; 92610; 94640; G0378 ×74; J2270 ×4; J7030; J2550; J0696 ×4; J2405 ×4; J1650 ×4; J1815 ×7; C9113 ×3; J2920